=== PATIENT | female | born 1940 | race Caucasian/White ===

== ENCOUNTER 2016-09-25 10:01 | Emergency (ER) | payer OTHER ==
[~2016-09-25] VITALS: Ht 152.4 cm; Wt 50.8 kg
[~2016-09-25 10:01] MED LIST: COUMADIN2.5 MG PO; PRAVASTATIN SOD80 MG PO; PREDNISONE50 MG PO; PREVACID15 MG PO; ULTRAM50 MG PO
[2016-09-25 10:06] VITALS: BP 161/74
[2016-09-25 13:53] LABS: INTER. NORMALIZED RATIO 2.7; PROTHROMBIN TIME 28.1 (9.2-11.2)
[2016-09-25 13:54] LABS: CHLORIDE 110 mEq/L (99-109); POTASSIUM 4.1 mEq/L (3.7-5.4); SODIUM 142 mEq/L (136-147)
[2016-09-25 13:56] LABS: GLUCOSE 82 mg/dL (70-99)
[2016-09-25 13:57] LABS: ANION GAP 11 MEQ/L (2-14)
[2016-09-25 14:00] LABS: GFR ESTIMATE (CALCULATED) > 59 mL/min/; UREA NITROGEN (BUN) 10 mg/dL (9-23)
[2016-09-25 14:02] LABS: CREATINE KINASE 80 IU/L (1-294)
[2016-09-25] MEDS ORDERED: PREDNISONE50 MG PO (14:17)
== END 2016-09-25 14:31 | disposition home or self-care (01) ==
LOC: EME 10:01
PROVIDERS: Physician Assistant
DX: M79.661 Pain in right lower leg (principal); Z86.718 Personal history of other venous thrombosis and embolism; Z79.01 Long term (current) use of anticoagulants
CPT/HCPCS: 80048; 82550; 85610; 93971; 99281; 99284; J7512

== ENCOUNTER 2017-01-08 23:08 | Emergency (ER) | payer OTHER ==
[~2017-01-08] VITALS: Ht 154.9 cm; Wt 52.0 kg
[2017-01-08 23:10] VITALS: BP 148/69
[2017-01-09] MEDS ORDERED: PREDNISONE20 MG PO (00:12)
== END 2017-01-09 01:16 | disposition home or self-care (01) ==
LOC: EME 23:08 → RME 23:08
DX: S93.402A Sprain of unspecified ligament of left ankle, initial encounter (principal); X50.9XXA Other and unspecified overexertion or strenuous movements or postures, initial encounter; Y93.H2 Activity, gardening and landscaping; Y92.007 Garden or yard of unspecified non-institutional (private) residence as the place of occurrence of the external cause; Y99.8 Other external cause status
CPT/HCPCS: 73610; 99281; 99285; J7512